=== PATIENT | female | born 1970 | race Caucasian/White ===

== ENCOUNTER 2019-07-26 07:52 | Emergency (ER) | payer MEDICAID ==
[~2019-07-26] VITALS: Ht 154.9 cm; Wt 55.8 kg
[2019-07-26 07:59] VITALS: Ht 154.9 cm; Wt 55.8 kg
[2019-07-26 09:20] VITALS: BP 116/45
== END 2019-07-26 09:20 | disposition home or self-care (01) ==
LOC: ED 07:52
DX: G50.1 Atypical facial pain (principal); E11.40 Type 2 diabetes mellitus with diabetic neuropathy, unspecified

== ENCOUNTER 2020-07-26 08:02 | Emergency (ER) | payer MEDICAID, SELFPAY ==
[~2020-07-26] VITALS: Ht 152.4 cm; Wt 53.5 kg
[2020-07-26 08:04] VITALS: Ht 152.4 cm; Wt 53.5 kg
[2020-07-26 08:57] VITALS: BP 138/75
== END 2020-07-26 08:57 | disposition home or self-care (01) ==
LOC: EDBD 08:02 → ED 08:02
DX: U07.1 COVID-19 (principal); E11.9 Type 2 diabetes mellitus without complications
CPT/HCPCS: U0003-CS